=== PATIENT | female | born 1960 | race Caucasian/White ===

== ENCOUNTER 2016-11-18 19:52 | Emergency (ER) | payer MEDICARE, MEDICAID ==
[2016-11-18] MEDS ORDERED: OXYCODONE-ACETAMINOPHEN 5-325 MG TABLET PO ONE (20:12)
--- NOTE | 2016-11-18 20:12 | ER Document Report ---
ED Medical Screen (RME) - General Chief Complaint: Flank Pain Stated Complaint: FLANK PAIN Time seen by provider: 20:08 Mode of Arrival: Wheelchair Information source: Patient Notes: 56 yo female presents to ed for left flank pain. with hx of kidney tumor. States she was sitting by a fire and drinking beer when the pain started. took tramadol an hour ago no relief TRAVEL OUTSIDE OF THE [place] IN LAST 30 DAYS: No - HPI Onset: This evening Onset/Duration: Sudden Quality of pain: Sharp, Stabbing Severity: Moderate Pain Level: 3 Associated Symptoms: Other - left flank pain Exacerbated by: Denies Relieved by: Denies Similar symptoms previously: Yes Recently seen / treated by doctor: No - Related Data Smoking: Cigarettes, Other - ppd Frequency of alcohol use: Social Drug Abuse: None Allergies/Adverse Reactions: Penicillins Allergy (Intermediate, Verified 08/26/16 09:48) Hives TEA Allergy (Intermediate, Uncoded 08/26/16 09:48) Hives Past Medical History - Past Medical History Cardiac Medical History: Denies: Hx Coronary Artery Disease, Hx Heart Attack, Hx Hypertension Pulmonary Medical History: Reports: Hx COPD - proair Denies: Hx Asthma, Hx Bronchitis, Hx Pneumonia Neurological Medical History: Denies: Hx Cerebrovascular Accident, Hx Seizures Musculoskeltal Medical History: Reports Hx Arthritis - HANDS - Immunizations Hx Diphtheria, Pertussis, Tetanus Vaccination: Yes
[2016-11-18] MEDS ORDERED: OXYCODONE HCL IR 5 MG TABLET PO ONE (20:56)
[2016-11-18 21:53] LABS: APPEARANCE,URINE SLIGHTLY-CLOUDY; BILIRUBIN,URINE NEGATIVE (NEGATIVE); GLUCOSE, URINE NEGATIVE (NEGATIVE); KETONES,URINE NEGATIVE (NEGATIVE); LEUKOCYTE ESTERASE,URINE LARGE (NEGATIVE); NITRITE,URINE NEGATIVE (NEGATIVE); PROTEIN,URINE NEGATIVE (NEGATIVE); URINE SPECIFIC GRAVITY 1.002; UROBILINOGEN,URINE NEGATIVE mg/dL (<2.0)
[2016-11-18 22:05] LABS: ABSOLUTE BASOPHILS # (AUTO) 0.1 10^3/uL (0.0-0.2); ABSOLUTE EOSINOPHILS # (AUTO) 0.2 10^3/uL (0.0-0.6); ABSOLUTE LYMPHOCYTES (AUTO) 1.7 10^3/uL (0.5-4.7); ABSOLUTE MONOCYTES (AUTO) 1.1 10^3/uL (0.1-1.4); ABSOLUTE NEUT (AUTO) 11.4 10^3/uL (1.7-8.2); BASOPHILS % (AUTO) 0.7 % (0-2); EOSINOPHILS % (AUTO) 1.2 % (0-6); HEMATOCRIT 40.6 % (36.0-47.0); HEMOGLOBIN 13.6 g/dL (12.0-15.5); HGB HCT DIFFERENCE 0.2; LYMPHOCYTES % (AUTO) 11.6 % (13-45); MEAN CORPUSCULAR HEMOGLOBIN 30.9 pg (27.0-33.4); MEAN CORPUSCULAR HGB CONC 33.6 g/dL (32.0-36.0); MEAN CORPUSCULAR VOLUME 92 fl (80-97); MONOCYTES % (AUTO) 7.8 % (3-13); RED BLOOD COUNT 4.41 10^6/uL (3.72-5.28); RED CELL DISTRIBUTION WIDTH 13.9 % (11.5-14.0); SEGMENTED NEUTROPHILS % (AUTO) 78.7 % (42-78); WHITE BLOOD COUNT 14.5 10^3/uL (4.0-10.5)
[2016-11-18] MEDS ORDERED: CEFTRIAXONE 1 GM/D5W RTU 50 ML IV ONE (22:05)
[2016-11-18] MEDS ORDERED: KETOROLAC TROMETHAMINE INJ/PF 30 MG/1 ML SDV IV ONE (22:06)
[2016-11-18] MEDS ORDERED: NORMAL SALINE 1000 ML 1,000 ML IV ONE (22:06)
--- NOTE | 2016-11-18 22:08 | ER Document Report ---
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 Describes the pain as a constant, sharp, severe pain to the left flank. Nothing improves or worsens the pain. States she's had similar symptoms in the past with kidney infections but denies that this feels at all like prior kidney stones. Notes that she's been nauseated without vomiting. She denies any associated focal abdominal pain, chest pain, shortness of breath, vomiting or diarrhea. She has not seen her primary care physician regarding today's concerns. TRAVEL OUTSIDE OF THE [place] IN LAST 30 DAYS: No - Related Data Allergies/Adverse Reactions: Penicillins Allergy (Intermediate, Verified 11/18/16 20:09) Hives codeine Adverse Reaction (Verified 11/18/16 20:09) TEA Allergy (Intermediate, Uncoded 11/18/16 20:09) Hives Past Medical History - General Information source: Patient - Social History Smoking Status: Current Every Day Smoker Frequency of alcohol use: Social Drug Abuse: None Lives with: Family Family History: Reviewed & Not Pertinent Patient has suicidal ideation: No Patient has homicidal ideation: No - Past Medical History Cardiac Medical History: Denies: Hx Coronary Artery Disease, Hx Heart Attack, Hx Hypertension Pulmonary Medical History: Reports: Hx COPD - proair Denies: Hx Asthma, Hx Bronchitis, Hx Pneumonia Neurological Medical History: Denies: Hx Cerebrovascular Accident, Hx Seizures Musculoskeltal Medical History: Reports Hx Arthritis - HANDS - Immunizations Hx Diphtheria, Pertussis, Tetanus Vaccination: Yes Hx Pneumococcal Vaccination: 11/13/13 Review of Systems - Review of Systems Notes: Constitutional: Negative for fever. HENT: Negative for sore throat. Eyes: Negative for visual changes. Cardiovascular: Negative for chest pain. Respiratory: Negative for shortness of breath. Gastrointestinal: Negative for abdominal pain, vomiting or diarrhea. Positive for left flank pain Genitourinary: Positive for dysuria and urinary frequency. Musculoskeletal: Negative for back pain. Skin: Negative for rash. Neurological: Negative for headaches, weakness or numbness. 10 point ROS negative except as marked above and in HPI. Physical Exam - Vital signs Interpretation: Normal Notes: PHYSICAL EXAMINATION: GENERAL: Well-appearing, well-nourished and in no acute distress. HEAD: Atraumatic, normocephalic. EYES: Pupils equal round and reactive to light, extraocular movements intact, sclera anicteric, conjunctiva are normal. ENT: nares patent, oropharynx clear without exudates. Moist mucous membranes. NECK: Normal range of motion, supple without lymphadenopathy LUNGS: Breath sounds clear to auscultation bilaterally and equal. No wheezes rales or rhonchi. HEART: Regular rate and rhythm without murmurs ABDOMEN: Soft, nontender, normoactive bowel sounds. No guarding, no rebound. No masses appreciated. Left CVA tenderness on palpation EXTREMITIES: Normal range of motion, no pitting or edema. No cyanosis. NEUROLOGICAL: No focal neurological deficits. Moves all extremities spontaneously and on command. PSYCH: Normal mood, normal affect. SKIN: Warm, Dry, normal turgor, no rashes or lesions noted. Course - Re-evaluation Re-evalutation: 11/19/16 02:00 Presentation is most consistent with acute pyelonephritis. Laboratories do demonstrate a large amount of white blood cells in the urine as well as bacteria. CVA tenderness is present on exam. The remainder laboratories are relatively unremarkable without evidence of renal dysfunction. I do not suspect an acute appendicitis, biliary pathology, pancreatitis, intra-abdominal abscess, or tubo-ovarian abscess based on history and examination. Patient has been given a dose of IV ceftriaxone and a liter of fluids. Patient is able to tolerate oral intake without difficulty. Will be discharged home on 7 day course of cephalexin. A urine culture has been sent. At this time will discharge with return precautions and follow-up recommendations. Verbal discharge instructions given a the bedside and opportunity for questions given. Medication warnings reviewed. Patient is in agreement with this plan and has verbalized understanding of return precautions and the need for primary care follow-up in the next 24-72 hours. - Laboratory Result Diagrams: 11/18/16 21:54 11/18/16 21:54 Laboratory results interpreted by me: 11/18/16 11/18/16 11/18/16 21:27 21:54 21:54 WBC 14.5 H Seg Neutrophils % 78.7 H Lymphocytes % 11.6 L Absolute Neutrophils 11.4 H Chloride 109 H Total Protein 6.1 L Urine Blood MODERATE H Ur Leukocyte Esterase LARGE H Discharge - Discharge Clinical Impression: Pyelonephritis Condition: Good Disposition: HOME, SELF-CARE Additional Instructions: You have been diagnosed with a condition called pyelonephritis which is an infection involving your kidneys and bladder. You have been given a dose of antibiotics here in the emergency department to help begin to treat this infection. Your also being sent home on antibiotics. Please start taking these later on today when you fill the prescription. Complete the course even if you feel better. Please return if you have persistent vomiting, pass out, have worsening pain, become unable to tolerate fluids, or have any other symptoms that are concerning to you. Please follow-up with your primary care physician in the next 24-48 hours. Prescriptions: Cephalexin Monohydrate [Keflex 500 mg Capsule] 500 mg PO QID #28 capsule Referrals: SOFI ARROYO MD [Primary Care Provider] - Follow up tomorrow
[2016-11-18 22:22] LABS: ALANINE AMINOTRANSFERASE 27 U/L (9-52); ALBUMIN 3.9 g/dL (3.5-5.0); ALKALINE PHOSPHATASE 54 U/L (38-126); ANION GAP 14 (5-19); ASPARTATE AMINO TRANSFERASE 22 U/L (14-36); BILIRUBIN,TOTAL 0.3 mg/dL (0.2-1.3); BLOOD UREA NITROGEN 9 mg/dL (7-20); CALCIUM 9.9 mg/dL (8.4-10.2); CARBON DIOXIDE 22 mmol/L (22-30); CHLORIDE 109 mmol/L (98-107); CREATININE RESULT 0.67 mg/dL (0.52-1.25); GLUCOSE 96 mg/dL (75-110); POTASSIUM 3.7 mmol/L (3.6-5.0); SODIUM 144.5 mmol/L (137-145); TOTAL PROTEIN 6.1 g/dL (6.3-8.2)
== END 2016-11-18 23:45 | disposition home or self-care (01) ==
LOC: ER 19:52
DX: N12 Tubulo-interstitial nephritis, not specified as acute or chronic (principal); Z87.442 Personal history of urinary calculi; R10.9 Unspecified abdominal pain; R11.0 Nausea; J44.9 Chronic obstructive pulmonary disease, unspecified; F17.200 Nicotine dependence, unspecified, uncomplicated; Z88.0 Allergy status to penicillin; Z91.048 Other nonmedicinal substance allergy status
CPT/HCPCS: 99284; 96375; 96365; 36415; 87086; 85025; 87088; 80053; 81001; 87186; J1885; A9270 ×2; J7030; J0696

== ENCOUNTER → 2016-11-30 | Outpatient (CLI) | payer MEDICARE, MEDICAID ==
[2016-11-30 08:39] LABS: CHOLESTEROL 177.07 mg/dL (0-200); Direct HDL 46 mg/dL (>40); TRIGLYCERIDES 201 mg/dL (<150)
[2016-11-30 08:49] LABS: DIRECT LDL 107 mg/dL (<100)
[2016-11-30 09:00] LABS: VLDL CHOLESTEROL 40.2 mg/dL (10-31)
== END ==
LOC: LAB 08:01
PROVIDERS: ATTEND Internal Medicine
DX: E78.5 Hyperlipidemia, unspecified (principal); E55.9 Vitamin D deficiency, unspecified
CPT/HCPCS: 36415; 80061; 82306

== ENCOUNTER 2020-05-11 20:28 | Emergency (ER) | payer MEDICARE, OTHER ==
[2020-05-11] MEDS ORDERED: DIPH/PERTUSS(ACELL)/TETANUS VAC/PF 0.5 ML SYR (>=10YO) IM ONE (21:24)
[2020-05-11] MEDS ORDERED: ACETAMINOPHEN 325 MG TABLET PO ONE (21:26)
--- NOTE | 2020-05-11 21:27 | ER Document Report ---
ED Medical Screen (RME) - General Chief Complaint: Fall Injury Stated Complaint: FALL, HEAD INJURY Time Seen by Provider: 05/11/20 21:15 Primary Care Provider: BERT CRUZ MD [Primary Care Provider] - Follow up as needed Mode of Arrival: Wheelchair Information source: Patient Notes: Patient states that she was drinking this evening and accidentally tripped over a footstool. Patient states she hit her head on another footstool. Patient with large laceration to the forehead and into the anterior scalp area. Patient with headache, back pain and right shoulder pain. Patient denies any loss of consciousness, nausea or vomiting. I have greeted and performed a rapid initial assessment of this patient. A comprehensive ED assessment and evaluation of the patient, analysis of test results and completion of the medical decision making process will be conducted by additional ED providers. TRAVEL OUTSIDE OF THE [place] IN LAST 30 DAYS: No - Related Data Allergies/Adverse Reactions: Penicillins Allergy (Intermediate, Verified 11/18/16 20:09) Hives codeine Adverse Reaction (Verified 11/18/16 20:09) TEA Allergy (Intermediate, Uncoded 11/18/16 20:09) Hives Past Medical History - Past Medical History Cardiac Medical History: Denies: Hx Coronary Artery Disease, Hx Heart Attack, Hx Hypertension Pulmonary Medical History: Reports: Hx COPD - proair Denies: Hx Asthma, Hx Bronchitis, Hx Pneumonia Neurological Medical History: Denies: Hx Cerebrovascular Accident, Hx Seizures Musculoskeltal Medical History: Reports Hx Arthritis - HANDS - Immunizations Hx Diphtheria, Pertussis, Tetanus Vaccination: Yes Physical Exam - Vital signs Vitals: Temp Pulse Resp BP Pulse Ox 99.1 F 81 16 119/72 99 05/11/20 20:39 05/11/20 20:39 05/11/20 20:39 05/11/20 20:39 05/11/20 20:39 - General General appearance: Alert Notes: Large laceration to face and anterior scalp area, no active bleeding, lower lumbar tenderness, right shoulder joint tenderness Course - Vital Signs Vital signs: Temp Pulse Resp BP Pulse Ox 99.1 F 81 16 119/72 99 05/11/20 20:39 05/11/20 20:39 05/11/20 20:39 05/11/20 20:39 05/11/20 20:39 Doctor's Discharge - Discharge Referrals: BERT CRUZ MD [Primary Care Provider] - Follow up as needed
--- NOTE | 2020-05-11 22:09 | RADIOLOGY REPORT (SQ) ---
EXAM DESCRIPTION: XR LUMBAR SPINE ANTEROPOSTERIOR, LATERAL, AND OBLIQUES COMPLETED DATE/TME: 05/11/2020 21:24 CLINICAL HISTORY: 59 years, Female, fall, low back pain COMPARISON: None. NUMBER OF VIEWS: 5 TECHNIQUE: Frontal, lateral, and oblique radiographs of the lumbar spine were acquired. LIMITATIONS: None. FINDINGS: 5 nonrib bearing lumbar type vertebral bodies. L1-L5 are in alignment. Vertebral body heights are maintained. Mild multilevel lumbar spondylosis is noted, designated primarily by intervertebral space narrowing, hypertrophic endplate spurring, and facet hypertrophy, most pronounced spanning L4-S1. No acute fracture or malalignment. 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 Surgical clips project over the right upper quadrant, indicating prior cholecystectomy. IMPRESSION: Mild multilevel lumbar spondylosis, as above. No underlying acute fracture or malalignment. copyright 2010 [employer]- All Rights Reserved
--- NOTE | 2020-05-11 22:10 | RADIOLOGY REPORT (SQ) ---
EXAM DESCRIPTION: XR right SHOULDER 3 VIEWS COMPLETED DATE/TME: 05/11/2020 21:24 CLINICAL HISTORY: 59 years, Female, fall, r shoulder injury COMPARISON: None. NUMBER OF VIEWS: TECHNIQUE: LIMITATIONS: None. FINDINGS: No fracture or dislocation. Mineralization of bone appears normal. IMPRESSION: No fracture or dislocation. copyright 2010 [employer]- All Rights Reserved
--- NOTE | 2020-05-11 22:20 | RADIOLOGY REPORT (SQ) ---
EXAM DESCRIPTION: CT CERVICAL SPINE WITHOUT IV CONTRAST, CT HEAD WITHOUT IV CONTRAST COMPLETED DATE/TME: 05/11/2020 21:24 CLINICAL HISTORY: 59 years, Female, fall COMPARISON: None. TECHNIQUE: Noncontrast CT of the head and cervical spine were acquired. Coronal and sagittal reformations were created. Images stored on PACS. All CT scanners at this facility use dose modulation, iterative reconstruction, and/or weight based dosing when appropriate to reduce radiation dose to as low as reasonably achievable (ALARA). [facility]: Dose Right [facility]: CareDose [facility]: Dose Right [facility]: Teradose 4D [facility]: The [employer] LIMITATIONS: None. FINDINGS: Noncontrast CT head: Brain parenchyma is normal in attenuation. No acute intracranial hemorrhage, mass effect, or extra-axial fluid is seen. Ventricles and sulcal spaces are normal in size and configuration. Globes and orbits show no acute abnormality. There is near complete opacification of both maxillary antra. Remaining paranasal sinuses and mastoid air cells are clear. The nasal septum is mildly deviated towards the left. No depressed skull fractures. Noncontrast CT cervical spine: Limited evaluation of the posterior fossa structures reveals no suspicious abnormality. Occipital condyles are normal. Lateral masses of C1 and C2 align properly. Base and tip of the dens are intact. Craniocervical alignment is maintained. There is grade 1 anterolisthesis of C3 upon C4 (0.4 cm). In addition, there is reversal of the normal cervical lordosis, either related to positioning and/or muscle spasm. Superimposed moderate multilevel cervical spondylosis is evident, designated by intervertebral space narrowing, hypertrophic endplate spurring, and facet hypertrophy. Multilevel uncovertebral joint hypertrophy is also evident, contributing to mild right neural foraminal stenosis at C5-C6. No definite acute fracture is evident. Limited evaluation of the lung apices reveals mild emphysematous change as well as biapical scarring. Paravertebral soft tissues show no suspicious finding. IMPRESSION: Noncontrast CT head: No acute intracranial abnormality. Noncontrast CT cervical spine: No definite acute fracture. Moderate multilevel cervical spondylosis with grade 1 anterolisthesis of C3 upon C4. TECHNICAL DOCUMENTATION: Quality ID # [id number]: Final reports with documentation of one or more dose reduction techniques (e.g., Automated exposure control, adjustment of the mA and/or kV according to patient size, use of iterative reconstruction technique) copyright 2011 [employer]- All Rights Reserved
[2020-05-12] MEDS ORDERED: LIDOCAINE 4%/TETRACAINE 0.5%/EPI 0.18% 5 ML TOPICAL SOLN TOP ONE (00:08)
[2020-05-12] MEDS ORDERED: LIDOCAINE 1% INJ-PF (10 MG/ML) 30 ML SDV INJ ONE (00:16)
--- NOTE | 2020-05-12 00:28 | ER Document Report ---
ED Fall - General Mode of Arrival: Wheelchair Information source: Patient TRAVEL OUTSIDE OF THE [place] IN LAST 30 DAYS: No - HPI Occurred: Just prior to arrival Where: Home, Indoors Context: Tripped Associated symptoms: None Location of injury/pain: Back, Head, Neck, Shoulder - Right shoulder Quality of pain: Sharp, Throbbing Severity: Severe Pain Level: 5 Prehospital interventions: C-collar <ANAIS URBINA - Last Filed: 05/12/20 08:32> <BECKI CANO - Last Filed: 05/12/20 12:41> - General Chief Complaint: Head Injury Stated Complaint: FALL, HEAD INJURY Time Seen by Provider: 05/11/20 21:15 Primary Care Provider: BERT CRUZ MD [[facility]] - Follow up tomorrow (11:15) HERSON VINES MD [ACTIVE STAFF] - Follow up in 3-5 days (need wound check in 24-48 hours) CARLY BRAND MD [COMMUNITY BASED STAFF] - Follow up as needed VIDAL AJ MD [NO LOCAL MD] - Follow up as needed Notes: 59-year-old female presented to ED for complaint of headache neck pain and laceration to her head. She states she was drinking this evening when she got up to go in the other room and tripped over the footstool. She states she hit her head on the footstool causing the laceration. She states she has pain to her head, neck, right shoulder, and low back. She does have a very large laceration to her face and scalp. She states she did have a tetanus immunizati on since she has been here today. She states she does smoke 1/2 pack a day drinks couple times a month and does not use any drugs except for the medications that the provider gives her. (ANAIS URBINA) - Related data Allergies/Adverse Reactions: Penicillins Allergy (Intermediate, Verified 11/18/16 20:09) Hives codeine Adverse Reaction (Verified 11/18/16 20:09) TEA Allergy (Intermediate, Uncoded 11/18/16 20:09) Hives Past Medical History - General Information source: Patient - Social History Smoking Status: Current Every Day Smoker Cigarette use (# per day): Yes - Half pack per day Chew tobacco use (# tins/day): No Frequency of alcohol use: Occasional Drug Abuse: None Family History: Reviewed & Not Pertinent Patient has homicidal ideation: No - Past Medical History Cardiac Medical History: Reports: Hx Hypercholesterolemia, Hx Hypertension Pulmonary Medical History: Reports: Hx COPD - proair EENT Medical History: Reports: None Neurological Medical History: Reports: None Endocrine Medical History: Reports: Hx Hypothyroidism Renal/ Medical History: Reports: None Malignancy Medical History: Reports: None GI Medical History: Reports: None Musculoskeletal Medical History: Reports Hx Arthritis - HANDS, Reports Hx Musculoskeletal Trauma Skin Medical History: Reports None Psychiatric Medical History: Reports: None Traumatic Medical History: Reports: Hx Fractures - Right arm Infectious Medical History: Reports: None Surgical Hx: Negative Past Surgical History: Reports: None - Immunizations Hx Diphtheria, Pertussis, Tetanus Vaccination: Yes - 05/11/2020 Hx Pneumococcal Vaccination: 11/13/13 <ANAIS URBINA - Last Filed: 05/12/20 08:32> - Social History Smoking Status: Unknown if Ever Smoked Family History: Reviewed & Not Pertinent <BECKI CANO - Last Filed: 05/12/20 12:41> Review of Systems - Review of Systems Constitutional: No symptoms reported EENT: No symptoms reported Cardiovascular: No symptoms reported Respiratory: No symptoms reported Gastrointestinal: No symptoms reported Genitourinary: No symptoms reported Female Genitourinary: No symptoms reported Musculoskeletal: Back pain, Muscle pain, Muscle stiffness, Neck pain Skin: Other - Facial and scalp laceration Hematologic/Lymphatic: No symptoms reported Neurological/Psychological: No symptoms reported, Headaches -: Yes All other systems reviewed and negative <ANAIS URBINA - Last Filed: 05/12/20 08:32> Physical Exam - Vital signs Interpretation: Normal - General General appearance: Appears well, Alert - HEENT Head: Open wounds Eyes: Normal Pupils: PERRL Ears: Normal External canal: Normal Tympanic membrane: Normal Sinus: Normal Nasal: Normal Mouth/Lips: Normal Pharynx: Normal Neck: Normal - Respiratory Respiratory status: No respiratory distress Chest status: Nontender Breath sounds: Normal Chest palpation: Normal - Cardiovascular Rhythm: Regular Heart sounds: Normal auscultation Murmur: No - Abdominal Inspection: Normal Distension: No distension Bowel sounds: Normal Tenderness: Nontender Organomegaly: No organomegaly - Back Back: Normal, Tender, Deformity/step-off, Vertebra tenderness - Extremities General upper extremity: Normal inspection, Nontender, Normal color, Normal ROM, Normal temperature General lower extremity: Normal inspection, Nontender, Normal color, Normal ROM, Normal temperature, Normal weight bearing. No: Angeal's sign - Neurological Neuro grossly intact: Yes Cognition: Normal Orientation: AAOx4 Estefani Coma Scale Eye Opening: Spontaneous Estefani Coma Scale Verbal: Oriented Estefani Coma Scale Motor: Obeys Commands [place] Coma Scale Total: 15 Speech: Normal Motor strength normal: LUE, RUE, LLE, RLE Sensory: Normal - Psychological Associated symptoms: Normal affect, Normal mood - Skin Skin Temperature: Warm Skin Moisture: Dry Skin Color: Normal Skin irregularity: Laceration Location of irregularity: Face, Scalp Irregularity with: Swelling, Tenderness <ANAIS URBINA - Last Filed: 05/12/20 08:32> - Vital signs Vitals: Temp Pulse Resp BP Pulse Ox 99.1 F 81 16 119/72 99 05/11/20 20:39 05/11/20 20:39 05/11/20 20:39 05/11/20 20:39 05/11/20 20:39 Course - Diagnostic Test Radiology reviewed: Image reviewed, Reports reviewed <ANAIS URBINA - Last Filed: 05/12/20 08:32> <BECKI CANO - Last Filed: 05/12/20 12:41> - Re-evaluation Re-evalutation: 05/12/20 08:32 Discussed all imaging with Dr. pires. He stated patient needed an MRI of the cervical spine before she could be discharged due to abnormalities at the C3-4. He did recommend that the laceration be sutured instead of stapled because she did need the MRI. Large flap laceration was sutured patient tolerated well she has been treated with morphine and Percocet during the night she has tolerated well and she is now sent to MRI for her cervical spine. (ANAIS URBINA) Disposition given by Faith Urbina NP at 0815. Advised on stable. Awaiting MRI to be completed and read. No focal neurological deficit noted on clinical examination. Sutures remain intact, no erythema, induration or warmth to touch. Vital signs stable. MRI to be done due to abnormality seen in the C3-C4 facets. Awaiting for results. Consulted with Dr. Mack Womack, ER supervising physician at 1030 regarding MRI results. after reviewing pertinent laboratory, diagnostic and clinical evaluation as well as MRI, there is edema to the left C3 and C4 facets and to lesser degree the right C4 and C5-6 facets, there is no soft tissue masses, the cord and base of brain were normal in signal intensity. Dr. Montes De Oca advised to have patient follow-up with neurosurgery within the next 1 to 2 days but needs to also wear her hard collar at all times. No noted fracture dislocation noted on MRI of cervical spine without contrast. Neurosurgery appointment was made for tomorrow morning at 1115am with MEHUL Mayo for follow-up. Patient understands that she does need to wear her hard collar until seen by a neurosurgeon Discussed signs and symptoms to return to the emergency room. After performing a Medical Screening Examination, I estimate there is LOW risk for ACUTE GLAUCOMA, TEMPORAL ARTERITIS, MENINGITIS, INCRANIAL HEMORRHAGE, or ISCHEMIC STROKE thus I consider the discharge disposition reasonable. I have reevaluated this patient multiple times and no significant life threatening changes are noted. The patient and I have discussed the diagnosis and risks, and we agree with discharging home with close follow-up with the understanding that symptoms and presentations can change. We also discussed returning to the Emergency Department immediately if new or worsening symptoms occur. We have discussed the symptoms which are most concerning (e.g., changing or worsening symptoms, new numbness or weakness, vomiting, fever) that necessitate immediate return. 05/12/20 12:36 05/12/20 12:40 05/12/20 12:40 (BECKI CANO) - Vital Signs Vital signs: Temp Pulse Resp BP Pulse Ox 97.7 F 56 L 16 155/85 H 99 05/12/20 12:38 05/12/20 12:38 05/12/20 12:38 05/12/20 12:38 05/12/20 12:38 Procedures - Laceration/Wound Repair Head Time completed: 02:12 Wound length (cm): 11 Wound's Depth, Shape: Flap Laceration pre-procedure: Sterile PPE donned, Sterile drapes applied, Shur-Clens applied Anesthetic type: 1% Lidocaine Volume Anesthetic (mLs): 10 Wound explored: Contaminated Irrigated w/ Saline (mLs): 500 Wound Repaired With: Sutures Suture Size/Type: 5:0 - to face, 3:0 - to scalp Number of Sutures: 14 Layer Closure?: No Post-procedure wound care: Sterile dressing applied Post-procedure NV exam normal: Yes Complications: Yes - in the hair needs mri of cervical spine in am Adult Head Front/Back picture: 1 - flap 2 - flap <ANAIS URBINA - Last Filed: 05/12/20 08:32> Discharge <ANAIS URBINA - Last Filed: 05/12/20 08:32> <BECKI CANO - Last Filed: 05/12/20 12:41> - Discharge Clinical Impression: C3-5 edema, Closed head injury, Laceration of head, Alcohol intoxication Condition: Stable Disposition: HOME, SELF-CARE Instructions: Antibiotic Ointment Protection (OM), Laceration Care (OM), Soap Cleansing ([facility]), Tetanus Immunization Given ([facility]) Additional Instructions: You must wear your hard collar at all times You have to be seen by neurosurgery. You must wear your collar until you are cleared by neurosurgery Please make an appointment with neurosurgeon within 24 to 48 hours You have 14 stitches in your head, please wash with soap and water twice a day or more if contaminated. Advised for you to see your doctor within 24 to 48 hours for wound check. As we have discussed, please follow up with your primary care doctor as soon as possible regarding today's ED visit and your headache symptoms. Call your doctor or return to the ED if you have a worsening headache, sudden and severe headache, confusion, slurred speech, facial droop, weakness or n umbness in any arm or leg, extreme fatigue, or other symptoms that concern you. Take [id number] ibuprofen and Tylenol for pain control You have an appointment tomorrow at 11:15 AM in [place] with Dr. Cruz Return immediately for any new or worsening symptoms. Follow up with primary care provider, call tomorrow to make followup appointment. Referrals: CARLY BRAND MD [COMMUNITY BASED STAFF] - Follow up as needed VIDAL AJ MD [NO LOCAL MD] - Follow up as needed HERSON VINES MD [ACTIVE STAFF] - Follow up in 3-5 days (need wound check in 24-48 hours) BERT CRUZ MD [[facility]] - Follow up tomorrow (11:15)
[2020-05-12] MEDS ORDERED: MORPHINE SULFATE 10 MG/ML INJ IM ONE (00:32)
[2020-05-12] MEDS ORDERED: OXYCODONE-ACETAMINOPHEN 5-325 MG TABLET PO ONE ×2 (05:20→09:50)
[2020-05-12] MEDS ORDERED: ONDANSETRON 4 MG TAB.RAPDIS PO ONE (09:49)
--- NOTE | 2020-05-12 09:53 | RADIOLOGY REPORT (SQ) ---
EXAM DESCRIPTION: MRI CERVICAL SPINE WITHOUT IMAGES COMPLETED DATE/TIME: 05/12/2020 9:21 am REASON FOR STUDY: grade 1 anterolithesis of c3 on c4 COMPARISON: None. TECHNIQUE: Sagittal and Axial imaging includes T1, T2, STIR and gradient echo sequences. LIMITATIONS: Excessive motion artifact. FINDINGS: ALIGNMENT: Grade 1 anterolisthesis C3 relative to C4. VERTEBRAE: Intact. BONE MARROW: There is edema in the left C3 and C4 facets and to a lesser degree the right C4 and C5 f acets. DISCS: Normal. No significant abnormal signal or loss of height. HARDWARE: None in the spine. CORD AND BASE OF BRAIN: Normal in size and signal intensity. SOFT TISSUES: No soft tissue masses. C1-C2: No significant spinal stenosis. C2-C3: No significant spinal stenosis or exit foraminal stenosis. C3-C4: Mild spinal stenosis due to disc bulge, malalignment and uncovertebral arthropathy. Moderate neural foraminal narrowing bilaterally. C4-C5: Mild spinal stenosis. Mild neural foraminal narrowing bilaterally. C5-C6: Mild spinal stenosis. Moderate left and severe right neural foraminal narrowing. C6-C7: Minimal spinal stenosis. Moderate right and mild left neural foraminal narrowing. C7-T1: No significant spinal stenosis or exit foraminal stenosis. UPPER THORACIC: Incompletely imaged. No significant spinal stenosis or exit foraminal stenosis. OTHER: No other significant finding. IMPRESSION: Limitations due to the amount of motion artifact. There is edema in the C3, C4 and C5 f acets but no evidence of dislocation. TECHNICAL DOCUMENTATION: JOB ID: [id number] 2010 [employer]- All Rights Reserved Reading location - IP/workstation name: [email or web address]
[2020-05-12 12:39] VITALS: BP 155/85
== END 2020-05-12 12:45 | disposition home or self-care (01) ==
LOC: ER 20:28
DX: S14.0XXA Concussion and edema of cervical spinal cord, initial encounter (principal); S01.81XA Laceration without foreign body of other part of head, initial encounter; S01.01XA Laceration without foreign body of scalp, initial encounter; R51 Headache; M54.2 Cervicalgia; M25.511 Pain in right shoulder; M54.5 Low back pain; W01.190A Fall on same level from slipping, tripping and stumbling with subsequent striking against furniture, initial encounter; Y93.89 Activity, other specified; Y92.009 Unspecified place in unspecified non-institutional (private) residence as the place of occurrence of the external cause; F10.129 Alcohol abuse with intoxication, unspecified; M47.816 Spondylosis without myelopathy or radiculopathy, lumbar region; M47.812 Spondylosis without myelopathy or radiculopathy, cervical region; G95.19 Other vascular myelopathies; M79.10 Myalgia, unspecified site; F17.210 Nicotine dependence, cigarettes, uncomplicated; I10 Essential (primary) hypertension; J44.9 Chronic obstructive pulmonary disease, unspecified; Z23 Encounter for immunization; Z87.81 Personal history of (healed) traumatic fracture; Z88.0 Allergy status to penicillin; Z91.018 Allergy to other foods
CPT/HCPCS: 99284; 96372; 90471; 72141; 72110; 73030; 70450; 72125; 90715; 12011; 12001; A9270 ×3; J3490 ×2; J2270; S0119

== ENCOUNTER 2020-05-22 12:43 | Emergency (ER) | payer MEDICARE, OTHER ==
--- NOTE | 2020-05-22 12:52 | ER Document Report ---
ED Suture/Wound Recheck - General Chief Complaint: Suture Removal Stated Complaint: SUTURE REMOVAL/HEAD Time Seen by Provider: 05/22/20 12:49 Mode of Arrival: Ambulatory Notes: 59-year-old female presented to the emergency room today for suture removal sutures of been in place for 12 days she has no fever no nausea no vomiting no redness to the affected area. TRAVEL OUTSIDE OF THE [place] IN LAST 30 DAYS: No - Related Data Allergies/Adverse Reactions: Penicillins Allergy (Intermediate, Verified 11/18/16 20:09) Hives codeine Adverse Reaction (Verified 11/18/16 20:09) TEA Allergy (Intermediate, Uncoded 11/18/16 20:09) Hives Past Medical History - General Information source: Patient - Social History Smoking Status: Never Smoker Cigarette use (# per day): No Chew tobacco use (# tins/day): No Smoking Education Provided: No Frequency of alcohol use: None Drug Abuse: None Family History: Reviewed & Not Pertinent - Past Medical History Cardiac Medical History: Reports: Hx Hypercholesterolemia, Hx Hypertension Denies: Hx Coronary Artery Disease, Hx Heart Attack Pulmonary Medical History: Reports: Hx COPD - proair Denies: Hx Asthma, Hx Bronchitis, Hx Pneumonia Neurological Medical History: Denies: Hx Cerebrovascular Accident, Hx Seizures Endocrine Medical History: Reports: Hx Hypothyroidism Musculoskeletal Medical History: Reports Hx Arthritis - HANDS, Reports Hx Musculoskeletal Trauma Traumatic Medical History: Reports: Hx Fractures - Right arm - Immunizations Hx Diphtheria, Pertussis, Tetanus Vaccination: Yes - 05/11/2020 Hx Pneumococcal Vaccination: 11/13/13 Review of Systems - Review of Systems Constitutional: No symptoms reported EENT: No symptoms reported Cardiovascular: No symptoms reported Respiratory: No symptoms reported Gastrointestinal: No symptoms reported Genitourinary: No symptoms reported Female Genitourinary: No symptoms reported Musculoskeletal: No symptoms reported Skin: No symptoms reported Hematologic/Lymphatic: No symptoms reported Neurological/Psychological: No symptoms reported Physical Exam - Vital signs Interpretation: Normal - General General appearance: Appears well, Alert - HEENT Head: Normocephalic, Atraumatic Eyes: Normal Pupils: PERRL - Respiratory Respiratory status: No respiratory distress Chest status: Nontender Breath sounds: Normal Chest palpation: Normal - Cardiovascular Rhythm: Regular Heart sounds: Normal auscultation Murmur: No - Abdominal Inspection: Normal Distension: No distension Bowel sounds: Normal Tenderness: Nontender Organomegaly: No organomegaly - Back Back: Normal, Nontender - Extremities General upper extremity: Normal inspection, Nontender, Normal color, Normal ROM, Normal temperature General lower extremity: Normal inspection, Nontender, Normal color, Normal ROM, Normal temperature, Normal weight bearing. No: Angela's sign - Neurological Neuro grossly intact: Yes Cognition: Normal Orientation: AAOx4 [place] Coma Scale Eye Opening: Spontaneous Estefani Coma Scale Verbal: Oriented Estefani Coma Scale Motor: Obeys Commands [place] Coma Scale Total: 15 Speech: Normal Motor strength normal: LUE, RUE, LLE, RLE Sensory: Normal - Psychological Associated symptoms: Normal affect, Normal mood - Skin Skin Temperature: Warm Skin Moisture: Dry Skin Color: Normal Course - Re-evaluation Re-evalutation: 05/22/20 12:51 Patient has a healing laceration to her central forehead which is been closed approximately 12 days ago she had no redness no drainage to the affected area no fever. Sutures are ready to come out. Discharge - Discharge Clinical Impression: Visit for suture removal Condition: Good Disposition: HOME, SELF-CARE Additional Instructions: Must follow-up with PMD in 3 to 5 days for any and all recurrent healthcare needs. Return to the ER for absolutely any change worsening condition.
== END 2020-05-22 14:00 | disposition home or self-care (01) ==
LOC: ER 12:43
DX: S01.81XD Laceration without foreign body of other part of head, subsequent encounter (principal); X58.XXXD Exposure to other specified factors, subsequent encounter